=== PATIENT | female | born 1990 | race African-American/Black ===

== ENCOUNTER 2016-03-12 09:22 | Day surgery (SDC) | payer OTHER ==
[2016-03-11 14:31] VITALS: BMI 18.9
[2016-03-12] MEDS ORDERED: PROPOFOL 20 ML ONE ×3 (10:16)
[2016-03-12 11:07] VITALS: TEMP 97.5
[2016-03-12 13:34] VITALS: BP 102/56; PULSE 52
--- NOTE | 2016-03-15 14:06 | PATH ---
Surgical Pathology Report Patient Name: DIANE HELTON [facility]. Rec. #: [id number] /Age/Gender: 1990 (Age: 26) / F Account: [id number] Location: [facility]-ENDOSCOPY Taken: 03/12/2016 Received: 03/12/2016 Reported: 03/15/2016 Physicians: Colton Davis M.D. Specimen(s) Received A: BX RIGHT COLON ANASTOMOSIS ULCERS B: BX ILEUM Clinical History Crohn's disease Active Crohn's disease, ileum and anastomosis, grade 2 hemorrhoids Final Diagnosis A. COLON, RIGHT, ULCER AT ANASTOMOSIS SITE, BIOPSY: ULCERATED COLONIC MUCOSA WITH MARKED ACTIVE CHRONIC COLITIS WITH CRYPTITIS, INFLAMED GRANULATION TISSUE AND MILD CRYPT ALTERATION. NO EVIDENCE OF GRANULOMATA OR DYSPLASIA. B. ILEUM, BIOPSY: ILEAL MUCOSA WITH FOCALLY ACTIVE MILD CHRONIC ILEITIS WITH FOCAL MINIMAL CRYPT ALTERATION. NO EVIDENCE OF GRANULOMATA OR DYSPLASIA. Electronically Signed Marco Moreno M.D. Gross Description A. Received in formalin, labeled "ulcers anastomosis right colon" are 4 perdomo, irregular portions of soft tissue ranging from 0.1-0.3 cm in greatest dimension. The specimens are submitted in toto in one cassette. B. Received in formalin, labeled "ileum" are 2 perdomo, irregular portions of soft tissue averaging 0.4 cm in greatest dimension. The specimens are submitted in toto in one cassette. 03/12/201603/12/2016
== END 2016-03-12 12:10 | disposition home or self-care (01) ==
LOC: JASU-ENDO 09:22
PROVIDERS: ATTEND Internal Medicine Gastroenterology
PROC: 0DBB8ZX Excision of Ileum, Via Natural or Artificial Opening Endoscopic, Diagnostic (ICD-10-PCS; principal; 2016-03-12 10:30)
DX: K50.00 Crohn's disease of small intestine without complications (principal); K63.3 Ulcer of intestine; K64.8 Other hemorrhoids
CPT/HCPCS: 84703; 88305-TC

== ENCOUNTER 2017-01-30 12:30 | Emergency (ER) | payer OTHER ==
[2017-01-30 12:45] VITALS: BP 94/52; PULSE 67; TEMP 98; BMI 19.1
[2017-01-30] MEDS ORDERED: FLUORESCEIN NA 1 EA STRIP ONE (13:50)
[2017-01-30] MEDS ORDERED: TETRACAINE 0.5% HCL 0.6ML DROPPER.BOTTLE OS ONE (13:56)
[2017-01-30] MEDS ORDERED: ERYTHROMYCIN 0.5% OPHTHALMIC OINTMENT 3.5 GM TUBE OS ONE (13:59)
--- NOTE | 2017-01-30 14:03 | PDOC ---
History of Present Illness - General Chief Complaint: Eye Problem Stated Complaint: EYE PAIN Time Seen by Provider: 01/30/17 13:37 History Source: Patient Exam Limitations: No Limitations - History of Present Illness Initial Comments: 01/30/17 14:02 Chief complaint: Left eye discomfort feels as if something stuck under left eyelid since this morning History of present illness: Patient is a 26-year-old female with a history of Crohn's disease here today with sudden onset of discomfort to her left eye as if something stuck under her left eyelid, with photophobia and tearing of left eye. Patient denies any visual changes. Patient denies wearing eyeglasses or contacts. Patient does not remember getting anything in her left eye or rubbing her left eye. Patient irrigated her left eye with warm water this morning. She denies any change in her vision. 01/30/17 17:11 Timing/Duration: 4-6 hours (today ) Severity: moderate (left eye ) Associated Symptoms: reports: other (tearing left eye, photophobia, pain ) Past History - Past Medical History Allergies/Adverse Reactions: Allergies Allergy/AdvReac Type Severity Reaction Status Date / Time No Known Allergies Allergy Verified 01/30/17 12:45 Home Medications: Ambulatory Orders Erythromycin 0.5% Eye Ointment [Erythromycin 0.5% Eye Ointment -] 1 applic OS QID #1 tube 01/30/17 Anemia: No Asthma: No Cancer: No Cardiac Disorders: No CVA: No COPD: No CHF: No Dementia: No Diabetes: No GI Disorders: Yes (CROHN'S) Disorders: No HTN: No Hypercholesterolemia: No Liver Disease: No Seizures: No Thyroid Disease: No - Surgical History Abdominal Surgery: Yes (COLON RESECTION) Appendectomy: No Cardiac Surgery: No Cholecystectomy: No Lung Surgery: No Neurologic Surgery: No Orthopedic Surgery: No - Suicide/Smoking/Psychosocial Hx Smoking History: Never smoked Hx Alcohol Use: No Drug/Substance Use Hx: No Substance Use Type: None Review of Systems - Review of Systems Able to Perform ROS?: Yes Constitutional: No: Symptoms Reported HEENTM: Yes: Eye Pain (left feels as if something stuff under eyelid ), Tearing (left ), Other (photophobia). No: Blurred Vision, Double Vision Respiratory: No: Symptoms reported Cardiac (ROS): No: Symptoms Reported ABD/GI: No: Symptoms Reported Integumentary: No: Symptoms Reported *Physical Exam - Vital Signs Last Vital Signs Temp Pulse Resp BP Pulse Ox 98.0 F 67 20 94/52 99 01/30/17 12:42 01/30/17 12:42 01/30/17 12:42 01/30/17 12:42 01/30/17 12:42 - Physical Exam General Appearance: Yes: Appropriately Dressed HEENT: positive: EOMI, JEANIE (b/l ), Photophobia (left ), Other (corneal abrasion noted 12 noon , no foreign object under left eyelid, no swelling of eyelid left ) Integumentary: positive: Normal Color Neurologic: positive: Alert, Normal Response, Responsive Medical Decision Making - Medical Decision Making 01/30/17 14:03 Patient is a 26-year-old female with a history of Crohn's disease here today with sudden onset of discomfort to her left thigh as if something stuck under her left eyelid, with photophobia and tearing of left eye. Patient denies any visual changes. Patient denies wearing eyeglasses or contacts. Patient does not remember getting anything in her left eye or rubbing her left eye. Patient irrigated her left eye with warm water this morning. left eye corneal abrasion PLAN: Tetracaine 0.5% 2 drops left eye Fluoscene stain left eye Erythromycin 0.5% one half inch in left conjunctiva sac now then 4 times a day 5 days Patient to follow up with tour consultant for further evaluation as soon as possible *DC/Admit/Observation/Transfer Diagnosis at time of Disposition: Left corneal abrasion Qualifiers: Encounter type: initial encounter Qualified Code(s): S05.02XA - Injury of conjunctiva and corneal abrasion without foreign body, left eye, initial encounter - Discharge Dispostion Disposition: HOME Condition at time of disposition: Stable - Prescriptions Prescriptions: Erythromycin 0.5% Eye Ointment [Erythromycin 0.5% Eye Ointment -] 1 applic OS QID #1 tube - Referrals Referrals: Rangel Lewis MD [Primary Care Provider] - Armin Valladares MD [Staff Physician] - - Patient Instructions Additional Instructions: Follow-up with tour consultant within the next 2 days for further evaluation Avoid rubbing your left eye Return to emergency room if symptoms worsen or new symptoms develop And patient voiced understanding of discharge instructions and all questions were answered - Post Discharge Activity
[2017-01-30] MEDS ORDERED: ERYTHROMYCIN 0.5% OPHTHALMIC OINTMENT 3.5 GM TUBE ONE (14:13)
== END 2017-01-30 14:16 | disposition home or self-care (01) ==
LOC: JERFT 12:30
DX: S05.02XA Injury of conjunctiva and corneal abrasion without foreign body, left eye, initial encounter (principal); X58.XXXA Exposure to other specified factors, initial encounter; Y93.89 Activity, other specified; Y92.89 Other specified places as the place of occurrence of the external cause
CPT/HCPCS: 99281-25